=== PATIENT | female | born 2000 | race Caucasian/White ===

== ENCOUNTER 2022-03-16 12:10 | Inpatient (IN) ==
[2022-03-16] MEDS ORDERED: Lactated Ringers 1000 ml BAG 1,000 ML IV ONE (12:52)
[2022-03-16] MEDS ORDERED: Buffered Lidocaine 1% SYRIN 1 ml INTRADERM ONE (12:52)
[2022-03-16] MEDS ORDERED: Lactated Ringers 1000 ml BAG 1,000 ML IV SCH (13:00)
[2022-03-16] MEDS ORDERED: Buffered Lidocaine 1% SYRIN 1 ml ONE (13:03)
[2022-03-16] MEDS: miSOPROStol 100 mcg TAB PO SCH (13:12)
[2022-03-16 13:26] LABS: Urine Benzodiazepine Screen None Detected (None Detect); Urine Opiates Screen None Detected (None Detect)
[2022-03-16 13:55] LABS: ABS Lymphocytes 1.4 10^3/ul (1.0-4.8); ABS Monocytes 0.7 10^3/ul (0-0.8); ABS Neutrophils 5.7 10^3/ul (1.5-7.7); Eosinophil % 0.5 %; Hematocrit 35 % (35-47); Hemoglobin 11.4 g/dL (12.0-16.0); Lymphocyte % 17.7 %; Mean Corpuscular HGB Conc 33 g/dL (31-36); Mean Corpuscular Hemoglobin 27 pg (27-31); Mean Corpuscular Volume 84 fL (80-97); Mean Platelet Volume 9.4 fL (7.4-10.4); Platelet Count 290 10^3/uL (150-450); Red Cell Distribution Width 14 % (10-15); White Blood Count 7.8 10^3/uL (3.5-10.8)
[2022-03-16] MEDS ORDERED: OBEPIDURAL (200 ML) 200 ML EPIDURAL ONE (22:03)
[2022-03-16] MEDS ORDERED: Bupivacaine 0.25% SDV PF 10 ML VIAL INJ ONE ×3 (22:03→23:43)
[2022-03-16] MEDS ORDERED: Lidocaine 1% VIAL 10 MG/ML VIAL 30 ML ONE (23:43)
[2022-03-16] MEDS ORDERED: Lidocaine 2% w EPI 1:100,000 20 ML MDV VIAL ONE (23:54)
[2022-03-17] MEDS: miSOPROStol 100 mcg TAB PO SCH ×4 (00:36→20:00)
[2022-03-17] MEDS ORDERED: Bupivacaine 0.5% SDV PF 30ML VIAL ONE (03:28)
[2022-03-17] MEDS ORDERED: Chloroprocaine 3% 20 ml VIAL ONE (07:13)
[2022-03-17] MEDS ORDERED: EPINEPHrine SULFITE FREE 1 MG/ML ONE (07:32)
[2022-03-17] MEDS ORDERED: Lidocaine 1% VIAL 10 MG/ML VIAL 30 ML ONE ×2 (07:33→14:30)
[2022-03-17] MEDS ORDERED: Sodium Citrate/Citric Acid LIQ 15 ML UDC PO PRN (08:31)
[2022-03-17] MEDS ORDERED: Lactated Ringers 1000 ml BAG 1,000 ML IV ONE (08:31)
[2022-03-17] MEDS ORDERED: Oxytocin in LR 20,000 MILLI.UNIT/1,000 ML BAG IV SCH ×2 (08:45→15:45)
[2022-03-17] MEDS ORDERED: Lactated Ringers 1000 ml BAG 1,000 ML IV SCH ×2 (09:00→16:00)
[2022-03-17] MEDS ORDERED: OBEPIDURAL (200 ML) 200 ML EPIDURAL SCH (09:00)
[2022-03-17] MEDS ORDERED: ceFOXitin 2 GM IVPREMIX 2 GM/50 ML BAG ONE (13:52)
[2022-03-17] MEDS ORDERED: Morphine PF AMP (0.5MG/ML) 5 MG/10 ML AMP ONE (14:07)
[2022-03-17] MEDS ORDERED: fentaNYL 100 mcg/2 ml 50 MCG/ML VIAL ONE ×2 (14:07→14:11)
[2022-03-17] MEDS ORDERED: Dexamethasone IV 4 MG/ML VIAL 1 ml VIAL ONE (14:13)
[2022-03-17] MEDS ORDERED: Ondansetron 4 mg VIAL 2 MG/ML 2 ml VIAL ONE (14:13)
[2022-03-17] MEDS ORDERED: ceFAZolin VIAL VIAL ONE (14:27)
[2022-03-17] MEDS ORDERED: Labetalol IV 5 MG/ML 20 ml VIAL ONE (14:33)
[2022-03-17] MEDS ORDERED: Carboprost Tromethamine 250 mcg 1 ml VIAL ONE (14:34)
[2022-03-17] MEDS ORDERED: Bupivacaine 0.25% SDV PF 10 ML VIAL INJ ONE (14:49)
[2022-03-17] MEDS ORDERED: ceFOXitin 1 GM in NS 0.9% 50 ML BAG IVPB ONE (15:00)
[2022-03-17] MEDS ORDERED: Acetaminophen IV 1 GM/100ML 1,000 MG/100 ML BAG IV ONE (15:10)
[2022-03-17] MEDS ORDERED: Dibucaine 1% OINT 28.35 GM TUBE PR PRN (15:41)
[2022-03-17] MEDS ORDERED: RHO D Immune Globulin (HUMAN) 300 MCG = 1,500 I.U. INJ IM PRN (15:41)
[2022-03-17] MEDS ORDERED: Glycerin ADULT 2.4 gm SUPP PR PRN (15:41)
[2022-03-17] MEDS ORDERED: Carboprost Tromethamine 250 mcg 1 ml VIAL IM ONE (15:41)
[2022-03-17] MEDS ORDERED: Witch Hazel PAD JAR TOPICAL PRN (15:41)
[2022-03-17] MEDS ORDERED: Ondansetron 4 mg VIAL 2 MG/ML 2 ml VIAL IV PRN (15:45)
[2022-03-17] MEDS ORDERED: Acetaminophen IV 1 GM/100ML 1,000 MG/100 ML BAG IV PRN (15:45)
[2022-03-17] MEDS ORDERED: Metoclopramide 5 MG/ML VIAL (10 mg) IV PRN (15:45)
[2022-03-17] MEDS ORDERED: Naloxone 0.4 mg VIAL 0.4 mg/ml 1 ml VIAL IV PUSH PRN (15:45)
[2022-03-18 07:01] LABS: ABS Lymphocytes 2.3 10^3/ul (1.0-4.8); ABS Monocytes 1.4 10^3/ul (0-0.8); ABS Neutrophils 10.6 10^3/ul (1.5-7.7); Hematocrit 26 % (35-47); Hemoglobin 8.4 g/dL (12.0-16.0); Lymphocyte % 15.9 %; Mean Corpuscular HGB Conc 32 g/dL (31-36); Mean Corpuscular Hemoglobin 27 pg (27-31); Mean Corpuscular Volume 84 fL (80-97); Platelet Count 255 10^3/uL (150-450); Red Blood Count 3.14 10^6 /uL (3.70-4.87); Red Cell Distribution Width 14 % (10-15); White Blood Count 14.4 10^3/uL (3.5-10.8)
[2022-03-20 09:50] VITALS: BP 117/72
== END 2022-03-20 13:48 | disposition home or self-care (01) | DRG 540 ==
LOC: MCHOBOUT 12:10 → MCHOB 12:16
PROVIDERS: ADMIT Registered Nurse; ATTEND Registered Nurse